=== PATIENT | male | born 1960 | race African-American/Black ===

== ENCOUNTER 2023-10-02 22:58 | Emergency (ER) | payer OTHER ==
[2023-10-02 23:09] VITALS: BP 109/66; PULSE 86; RESP 18; TEMP 98.1; BMI 24.4
== END 2023-10-02 23:44 | disposition home or self-care (01) ==
LOC: JERFT 22:58 → EDSEX 22:58 → JERFT 23:44
DX: Z48.02 Encounter for removal of sutures (principal)
CPT/HCPCS: 90853; 99281-25